=== PATIENT | female | born 1965 | race Caucasian/White ===

== ENCOUNTER 2021-06-09 19:30 | Emergency (ER) | payer MEDICARE ==
[~2021-06-09] VITALS: Ht 170.2 cm; Wt 221.0 kg
[2021-06-09] MEDS ORDERED: ROCURONIUM 50 MG/5 ML VIAL. ONE (19:45)
[2021-06-09] MEDS ORDERED: ETOMIDATE 40 MG/20 ML VIAL. ONE (19:45)
[2021-06-09] MEDS ORDERED: PROPOFOL 10,000 MCG/ML (100ML) VIAL IV ONE (19:45)
[2021-06-09] MEDS ORDERED: EPINEPHrine SYRINGE 1 MG/10 ML SYRINGE. ONE (19:45)
--- NOTE | 2021-06-09 20:16 | PHYS DOC ---
Past History Additional Past Medical Histor: cerebral fluid leak since 2010, liposarcoma 2004 and 2010, ovarian ca 2012 Past Surgical History: Cancer Surgery Adult General Chief Complaint Chief Complaint: ALTERED MENTAL STATUS HPI HPI Patient is a 55-year-old female with a past known history per family of atrial fibrillation on warfarin, some sort of brain fluid leak per family, some type of cancer who presents to the emergency department unresponsive. Per family, patient's last known well was approximately 5:30 PM when she went to take a nap. States that they went to check on her and she was unresponsive. In route, EMS placed on oxygen as she was hypoxic on room air and seem to be having trouble breathing and had some secretions. 2 mg of Narcan given with no response. EMS blood sugar greater than 200. Review of Systems Review of Systems Review of systems otherwise unremarkable except noted in HPI Allergies Allergies Allergies Coded Allergies Type Severity Reaction Last Updated Verified Penicillins Allergy Unknown 06/09/21 Yes adhesive tape Allergy Unknown 06/09/21 Yes gabapentin Allergy Unknown 06/09/21 Yes iodine Allergy Unknown 06/09/21 Yes levofloxacin Allergy Unknown 06/09/21 Yes Physical Exam Physical Exam Constitutional: Morbidly obese, in acute distress HENT: Normocephalic, atraumatic, oropharynx moist, Eyes: Pupils 5 mm bilaterally, dilated and unresponsive to light Neck: Normal range of motion, no tenderness, supple, no stridor. [] Cardiovascular: Tachycardia Lungs & Thorax: Hypoxia on room air, tachypnea in the 40s and 50s, lots of secretions in the airway with some bright red blood in the oropharynx Abdomen: soft, no injuries or deformities noted Skin: Warm, dry, no erythema, no rash. [] Back: No injuries or deformities noted Extremities: ROM intact, no edema. [] Neurologic: GCS of 6, (E1, V1, M4,), positive Babinski on the left, withdraws from pain on stimulation of all extremities, pupils 5 mm, dilated and unresponsive, positive gag reflex, positive corneal reflex Current Patient Data Lab Results Laboratory Tests Test 06/09/21 19:45 Glucose (Fingerstick) 175 mg/dL (70-99) H EKG EKG [] Radiology/Procedures Radiology/Procedures [] Heart Score C/O Chest Pain: No Risk Factors: Risk Factors: DM, Current or recent (<one month) smoker, HTN, HLP, family history of CAD, obesity. Risk Scores: Risk Factors: DM, Current or recent (<one month) smoker, HTN, HLP, family history of CAD, obesity. Course & Med Decision Making Course & Med Decision Making Patient is a 55-year-old female that arrives unresponsive with a GCS of 6, glucose of 187, and acute distress Placed on the monitor with IV access placed x2, cardiac pads in place. Given patient's GCS, blood and secretions in the oropharynx patient was intubated. 7.5 tube. Video laryngoscopy with size 4 curved blade. Etomidate and rocuronium. Propofol and fentanyl post intubation package On initial inspection during intubation patient had what appeared to be probable vomitus, some secretions and bright red blood in the oropharynx and around the esophagus. There was some blood coming out of the esophagus and the airway. Suctioned until liquid was resolved but started to accumulate immediately before intubation. Upon arrival patient's O2 sat was 80-85 and even after intubation was difficult to maintain between 80 and 85. Required frequent suctioning of ET tube and oropharynx given blood and secretions. Initial intubation successful however during movement, and securing of the tube I feel that the tube was dislodged and patient's oxygen dropped into the 70s. On inspection the tube had indeed been pulled out above the trachea and patient was reintubated. Given concern for intracranial bleed, [facility] and even [facility] were considered, but neither had the necessary medical intervention capabilities as [facility] has no neurosurgery and [facility] CT would not be able to accommodate her. Discussed patient with who accepted. Chest x-ray showed ET tube approximately 7 cm above the jacqueline after adjustment from initial which showed ET tube in the trachea directed towards the right mainstem bronchus. Differential diagnosis includes but is not limited to thrombotic versus hemorrhagic stroke, trauma, seizure and hypoxia due to aspiration of vomitus as EMS stated that when they arrived she was altered already with a GCS of 6 and had some vomitus in the bed with her. However patient body habitus precluded from CT imaging to evaluate for stroke, mass, intracranial hemorrhage. Given the fact that patient was on warfarin there was a serious concern for intracranial hemorrhage/stroke. Laboratory analysis obtained while patient was here but due to the emergent nature of her condition was transferred on to before resulting. Laboratory analysis notable for mild elevation lactate, and mild hypokalemia and hypomagnesemia. Blood gas with a pH 7.362 with a PCO2 of 45, PO2 of 84, bicarb of 26 and lactate of 1.54. Discussed with family differential diagnosis and need for transfer given emergent condition and being the only facility in the area with capabilities to handle the patient. Family grateful, verbalized understanding and agreed with plan of transfer and admission. [] Dragon Disclaimer Dragon Disclaimer This electronic medical record was generated, in whole or in part, using a voice recognition dictation system. Departure Departure: Impression: Primary Impression: Altered mental status Additional Impressions: Hypoxia Respiratory distress Hematemesis Hemoptysis Disposition: 30 STILL A PATIENT Admitting Physician: Other Condition: GUARDED Referrals: JOSHUA GUTIERREZ MD (PCP) Problem Qualifiers TRIPP REESE MD Jun 09, 2021 20:16
[2021-06-09 20:43] LABS: BASO # 0.1 x10^3/uL (0.0-0.2); BASO % 1 % (0-3); EOS # 0.1 x10^3/uL (0.0-0.7); EOS % 1 % (0-3); HEMOGLOBIN 14.3 g/dL (12.0-15.5); LYMPH # 0.4 x10^3/uL (1.0-4.8); LYMPH % 2 % (24-48); MEAN CORPUSCULAR HEMOGLOBIN 28 pg (25-35); MEAN CORPUSCULAR HGB CONC 33 g/dL (31-37); MEAN CORPUSCULAR VOLUME 86 fL (79-100); MONO # 0.3 x10^3/uL (0.0-1.1); MONO % 2 % (0-9); NEUT # 14.8 x10^3uL (1.8-7.7); NEUT % 94 % (31-73); PLATELET COUNT 215 x10^3/uL (140-400); RED BLOOD COUNT 5.09 x10^6/uL (3.50-5.40); RED CELL DISTRIBUTION WIDTH 15.3 % (11.5-14.5); WHITE BLOOD COUNT 15.7 x10^3/uL (4.0-11.0)
[2021-06-09 20:46] LABS: CALCIUM 8.8 mg/dL (8.5-10.1); CREATININE 0.7 mg/dL (0.6-1.0); GFR 86.6; POTASSIUM 3.4 mmol/L (3.5-5.1)
[2021-06-09 20:47] LABS: % BANDS 4 % (0-9); % LYMPHS 2 % (24-48); % MONOS 2 % (0-10); % SEGS 92 % (35-66); PLT ESTIMATE ADEQUATE (ADEQUATE)
[2021-06-09 20:52] LABS: ALBUMIN 3.5 g/dL (3.4-5.0); MAGNESIUM 1.6 mg/dL (1.8-2.4); TOTAL BILIRUBIN 0.4 mg/dL (0.2-1.0)
--- NOTE | 2021-06-09 20:54 | RAD ---
EXAM: CHEST 1 VIEW History: Intubation, COMPARISON: None available TECHNIQUE: Single portable radiograph of the chest FINDINGS: Low lung volumes and technique accentuates heart and pulmonary vascularity. ET tube is rivka ntified in the trachea with the tip directed towards the right mainstem bronchus. Right-sided Port-A- Cath is identified. Moderate prominent bilateral interstitial lung markings likely congestive changes or interstitial infiltrates. Prominent appearing right hilum. IMPRESSION: 1. ET tube is identified in the trachea with the tip directed towards the right mainstem bronchus. 2. Prominent appearing right hilum could be mass or prominent vasculature. Recommend CT with IV cont rast for better evaluation. 3. Moderate prominent bilateral interstitial lung markings likely congestive changes or interstitial infiltrates. Electronically signed by: Mohit Mckeon MD (06/09/2021 8:51 PM) [id number]
[2021-06-09 21:17] VITALS: BP 229/132
--- NOTE | 2021-06-09 22:20 | RAD ---
EXAMINATION: XR CHEST 1V CLINICAL HISTORY: REPOSITION TUBE FOR PLACEMENT TECHNIQUE: XR CHEST 1V COMPARISON: 06/09/2021 FINDINGS/ IMPRESSION: Interval retraction of the endotracheal tube which now terminates approximately 7 cm above the jacqueline . Cannulated right internal jugular Port-A-Cath remains in similar position. Increased hazy opacity throughout the right lung, possibly related to edema. Remainder of the study o therwise essentially unchanged. Electronically signed by: William Childs DO (06/09/2021 10:17 PM) [email or web address]
[2021-06-09] MEDS ORDERED: IV RINGERS SOLUTION,LACTATED 1,000 ML IV ONE (23:00)
== END 2021-06-09 22:00 | disposition short-term general hospital (02) ==
LOC: ER 19:30
DX: R06.03 Acute respiratory distress (principal); K92.0 Hematemesis; R04.2 Hemoptysis; R41.82 Altered mental status, unspecified; R09.02 Hypoxemia; I48.91 Unspecified atrial fibrillation; Z88.0 Allergy status to penicillin; Z88.1 Allergy status to other antibiotic agents; Z88.8 Allergy status to other drugs, medicaments and biological substances
CPT/HCPCS: 36415; 51702; 71045; 80048; 80053; 82947; 83605; 83735; 84484; 85007; 85025; 85610; 85730; 93005; 96360; 96361; 96374; 99285; J0171; J2704; J3010; J7120